=== PATIENT | female | born 1970 | race Caucasian/White ===

== ENCOUNTER → 2018-08-19 | Outpatient (CLI) | payer OTHER ==
[~2018-08-19] MED LIST: AMIT50 PO; Albenza200 MG PO; BUSP5 PO; CYCL10 PO; HYDACE5 PO; IBUP600 PO; Norco 5-325 Ta1 EACH PO; PROCODE120 PO; Silvadene20 GM TOP; Ultram50 MG PO; Veetids 500500 MG PO
[2018-08-19 14:32] LABS: Candida species (DNA Probe) Negative (NEGATIVE); G. vaginalis (DNA Probe) Positive (NEGATIVE); T. vaginalis (DNA Probe) Negative (NEGATIVE)
== END | disposition home or self-care (01) ==
LOC: LAB SHORT 13:20 → LAB 13:20
PROVIDERS: Family Medicine
DX: N76.0 Acute vaginitis (principal)
CPT/HCPCS: 87480; 87510; 87660

== ENCOUNTER 2020-10-25 23:44 | Emergency (ER) | payer OTHER ==
[~2020-10-25] VITALS: Ht 167.6 cm; Wt 64.4 kg
[2020-10-26 00:12] LABS: Source, Urine Catheter
[2020-10-26 00:12] LABS: BASOPHILS ABSOLUTE AUTO 0.02 K/mm3 (0.00-0.23); BASOPHILS PERCENT AUTO 1 % (0-2); EOSINOPHILS ABSOLUTE AUTO 0.07 K/mm3 (0.00-0.68); EOSINOPHILS PERCENT AUTO 2 % (0-6); Hematocrit 33.8 % (33.0-51.0); Hemoglobin 11.2 g/dL (11.5-16.0); IMMATURE GRAN ABSOLUTE AUTO 0.01 K/mm3 (0.00-0.10); IMMATURE GRAN PERCENT AUTO 0 % (0-1); LYMPHOCYTES ABSOLUTE AUTO 1.44 K/mm3 (0.84-5.20); LYMPHOCYTES PERCENT AUTO 39 % (21-46); MONOCYTES ABSOLUTE AUTO 0.36 K/mm3 (0.16-1.47); MONOCYTES PERCENT AUTO 10 % (4-13); Mean Corpuscular HGB 29.2 pg (26.0-34.0); Mean Corpuscular HGB Conc 33.1 g/dL (31.5-36.5); Mean Corpuscular Volume 88 fL (80-100); NEUTROPHILS ABSOLUTE AUTO 1.84 K/mm3 (1.96-9.15); NEUTROPHILS PERCENT AUTO 49 % (41-73); Platelet Count 197 K/mm3 (150-400); RDW Coefficient Variation 12.7 % (11.7-14.2); RDW Standard Deviation 41.1 fL (35.1-46.3); Red Blood Cell Count 3.84 M/mm3 (3.80-5.20); White Blood Cell Count 3.74 K/mm3 (4.00-11.30)
[2020-10-26 00:15] LABS: Bilirubin, Urine Neg (Neg); Blood, Urine Neg (Neg); Glucose Qualitative, Urine Neg (Neg); Ketones, Urine Neg (Neg); Leukocyte Esterase, Urine Neg (Neg); Nitrite, Urine Neg (Neg); Protein, Urine Neg (Neg); Urobilinogen, Urine NORM (Normal)
[2020-10-26 00:16] LABS: Appearance, Urine Clear (Clear); Color, Urine Yellow (P-Yellow)
[2020-10-26 00:24] LABS: U Amphetamine Screen Not Detected; U Barbituate Screen Not Detected; U Benzodiazapine Screen Not Detected; U Buprenorphine Screen DETECTED; U Cannabinoids Screen Not Detected; U Cocaine Screen Not Detected; U Methadone Screen Not Detected; U Methamphetamine Screen Not Detected; U Opiates Screen Not Detected; U Oxycodone Screen Not Detected; U Phencyclidine Screen Not Detected; U Propoxyphene Screen Not Detected
[2020-10-26 00:31] LABS: Acetaminophen, Random <2.0 ug/mL (10.0-30.0); Alanine Aminotransfer (ALT/SGP 28 U/L (12-78); Albumin, Blood 3.6 g/dL (3.4-5.0); Albumin/Globulin Ratio 1.1 (0.8-1.8); Alk Phos 48 U/L (50-136); Anion Gap 7 mmol/L (6-16); Aspartate Aminotrans (AST/SGOT 20 U/L (12-37); Bilirubin, Total 0.6 mg/dL (0.1-1.0); Blood Urea Nitrogen 16 mg/dL (8-24); Bun/Creatinine Ratio 15.5 (12.0-20.0); CO2, Blood 27 mmol/L (21-32); Calcium, Blood 8.6 mg/dL (8.5-10.1); Chloride, Blood 103 mmol/L (98-108); Creatinine, Blood 1.03 mg/dL (0.40-1.00); Ethanol (Alcohol), Blood, Med 51 mg/dL; Globulin, Blood 3.2 g/dL (2.2-4.0); Glomerular Filtration Rate 56 (60-); Glucose, Blood 89 mg/dL (70-99); Potassium, Blood 3.6 mmol/L (3.5-5.5); Salicylate <1.7 mg/dL (2.8-20.0); Sodium, Blood 137 mmol/L (136-145); Total Protein, Blood 6.8 g/dL (6.4-8.2)
== END 2020-10-26 02:40 | disposition home or self-care (01) ==
LOC: ER 23:44
PROVIDERS: Emergency Medicine
DX: F10.129 Alcohol abuse with intoxication, unspecified (principal); Y90.2 Blood alcohol level of 40-59 mg/100 ml; Z79.899 Other long term (current) drug therapy
CPT/HCPCS: 80053; 81003; 81025; 85025; 93005; 93010; 99284-25; G0480

== ENCOUNTER 2022-09-21 06:09 | Day surgery (SDC) | payer OTHER ==
[~2022-09-21] VITALS: Ht 154.9 cm; Wt 65.9 kg
[2022-09-21] MEDS ORDERED: HYDHCL25 PO (06:47)
[2022-09-21] MEDS ORDERED: PROP10 PO (06:47)
[2022-09-21] MEDS ORDERED: BUPRENORPHIN-N1 EAC1 SL (06:47)
[2022-09-21] MEDS ORDERED: IBUP800 PO (06:48)
[2022-09-21] MEDS ORDERED: CLON1 (06:49)
[2022-09-21] MEDS ORDERED: MELATONIN5 M1 PO (06:49)
--- NOTE | 2022-09-21 09:38 | NUR ---
09/21/22 0938 Suma Beverly O2 10L PLACED ON PT SHE BECAME SLEEPY AND SATS DECREASED TO UPPER 80S. SPO2 NOW 100% WITH 10L O2 VIA FACE TENT
[2022-09-21 09:58] VITALS: BP 140/113
--- NOTE | 2022-09-21 11:10 | NUR ---
09/21/22 1110 Suma Beverly IV REMOVED, CANNULA INTACT, PT JATIN WELL. PT INFORMED IF SHE IS HAVING ANY PAIN AND CURRENT PAIN REGIMEN IS NOT ADEQUATE AT HOME SHE IS TO NOTIFY DR ZHOU HER PAIN MANAGEMENT DR PER DR SHEIKH, PT AWARE AND VERBALIZED UNDERSTANDING. AND DAUGHTER IN ROOM FOR D/C INSTRUCTIONS, THEY TOO VERBALIZED UNDERSTANDING AND MEDICATION AGREEMENT AND D/C INSTRUCTIONS.
== END 2022-09-21 11:04 | disposition home or self-care (01) ==
LOC: ORSCSDS 06:09
PROVIDERS: Podiatrist Foot & Ankle Surgery
PROC: 0SGN04Z Fusion of Left Metatarsal-Phalangeal Joint with Internal Fixation Device, Open Approach (ICD-10-PCS; principal; 2022-09-21 07:30)
PROC: 0SGL04Z Fusion of Left Tarsometatarsal Joint with Internal Fixation Device, Open Approach (ICD-10-PCS; principal; 2022-09-21 07:30)
DX: M21.612 Bunion of left foot (principal); M77.42 Metatarsalgia, left foot; I10 Essential (primary) hypertension; K21.9 Gastro-esophageal reflux disease without esophagitis; F41.9 Anxiety disorder, unspecified; F32.A Depression, unspecified; Z79.899 Other long term (current) drug therapy
CPT/HCPCS: A9270; C1713; J0171; J0690; J1100; J1885; J2250; J2405; J2704; J2795; J3010; J7120

== ENCOUNTER 2022-09-23 15:29 | Emergency (ER) | payer OTHER ==
[~2022-09-23] VITALS: Ht 157.5 cm; Wt 65.8 kg
[~2022-09-23 15:29] MED LIST changes: +BUPRENORPHIN-N1 EAC1 SL; +CLON1; +HYDHCL25 PO; +IBUP800 PO; +MELATONIN5 M1 PO; +PROP10 PO
[2022-09-23 15:39] VITALS: BP 154/107
[2022-09-23] MEDS ORDERED: KETO10 PO (17:47)
== END 2022-09-23 17:58 | disposition home or self-care (01) ==
LOC: ER 15:29
DX: G89.18 Other acute postprocedural pain (principal); M79.672 Pain in left foot; G47.00 Insomnia, unspecified
CPT/HCPCS: A9270; J1885